=== PATIENT | male | born 1950 | race Caucasian/White ===

== ENCOUNTER 2018-07-04 23:33 | Emergency (ER) | payer OTHER ==
[2018-07-05] MEDS: ACETAMINOPHEN 325 MG TAB PO (00:14)
[2018-07-05] MEDS: DIPHTH/TET/ACEL PERTUSS (ADULT) 0.5 ML VIAL IM* (00:15)
[2018-07-05] MEDS: LIDOCAINE 1% (MDV) 10 ML INJ INJ (00:15)
[2018-07-05] MEDS: CEPHALEXIN 500 MG CAP PO (02:03)
[2018-07-05] MEDS: IBUPROFEN 200 MG TAB PO (02:04)
== END 2018-07-05 02:32 | disposition home or self-care (01) ==
LOC: FTE 07-05 02:32
DX: S62.522A Displaced fracture of distal phalanx of left thumb, initial encounter for closed fracture (principal); E11.9 Type 2 diabetes mellitus without complications; W29.3XXA Contact with powered garden and outdoor hand tools and machinery, initial encounter; Y92.9 Unspecified place or not applicable; Z23 Encounter for immunization
CPT/HCPCS: 12002; 73140; 90471; 90715; 99283-25

== ENCOUNTER 2018-07-07 11:02 | Emergency (ER) | payer OTHER | END 2018-07-07 12:10 | disposition home or self-care (01) | LOC: FTE 11:02 | DX: S62.502G Fracture of unspecified phalanx of left thumb, subsequent encounter for fracture with delayed healing (principal); E11.9 Type 2 diabetes mellitus without complications; X58.XXXD Exposure to other specified factors, subsequent encounter | CPT/HCPCS: 99281 ==

== ENCOUNTER 2018-07-19 08:50 | Emergency (ER) | payer OTHER | END 2018-07-19 09:21 | disposition home or self-care (01) | LOC: FTE 08:50 | DX: S62.502A Fracture of unspecified phalanx of left thumb, initial encounter for closed fracture (principal); E11.9 Type 2 diabetes mellitus without complications; X58.XXXA Exposure to other specified factors, initial encounter; Y92.9 Unspecified place or not applicable | CPT/HCPCS: 99281 ==